=== PATIENT | female | born 1995 | race Hispanic/Latino ===

== ENCOUNTER 2018-04-21 15:10 | Emergency (ER) | payer OTHER ==
[2018-04-21] MEDS ORDERED: Metoclopramide HCl 10 MG/2 ML VIAL ONE (15:39)
[2018-04-21] MEDS ORDERED: diphenhydrAMINE 50 MG/ML VIAL ONE (15:41)
== END 2018-04-21 17:08 | disposition home or self-care (01) ==
LOC: ERS 15:10
DX: G43.809 Other migraine, not intractable, without status migrainosus (principal); R20.2 Paresthesia of skin; E78.5 Hyperlipidemia, unspecified
CPT/HCPCS: 96365; 96375; J1200; J2765